=== PATIENT | female | born 1935 ===

== ENCOUNTER 2019-09-18 05:23 | Day surgery (SDC) | payer OTHER | END 2019-09-18 11:10 | disposition home or self-care (01) | LOC: AMB-ENDOS 05:23 → ADM 14:15 → AMB-ENDOS 14:15 | PROVIDERS: ATTEND Surgery | DX: D12.3 Benign neoplasm of transverse colon (principal); D12.4 Benign neoplasm of descending colon; K62.4 Stenosis of anus and rectum; K60.1 Chronic anal fissure ==

== ENCOUNTER 2020-08-11 08:55 | Day surgery (SDC) | payer OTHER ==
[~2020-08-11 08:55] MED LIST: ADULT LOW DOSE81 M1 PO; ATACAND16 MG PO; GLIMEPIRIDE4 M1 PO; NORVASC2.5 M1 PO; PLAVIX75 MG PO; TOPROL XL50 M1 PO; TRIJARDY XR 251 EACH PO
[2020-08-11] MEDS ORDERED: ULTRAM50 MG PO (13:59)
[2020-08-11] MEDS ORDERED: NEURONTIN300 MG PO (14:00)
[2020-08-11] MEDS ORDERED: DERMOPLAST PAIN78 GM TOP (14:00)
[2020-08-11] MEDS ORDERED: AMOX1TAB5 PO (14:06)
== END 2020-08-11 19:00 | disposition home or self-care (01) ==
LOC: CIR.AMB 08:55
PROVIDERS: ATTEND Surgery
DX: K60.1 Chronic anal fissure (principal); K62.4 Stenosis of anus and rectum; K64.8 Other hemorrhoids; Z20.822 Contact with and (suspected) exposure to COVID-19